=== PATIENT | male | born 1940 | race Caucasian/White ===

== ENCOUNTER 2016-09-01 13:06 | Inpatient (IN) | payer MEDICARE ==
[2016-09-01] VITALS (7 sets, daily range): BP systolic 111–142; BP diastolic 58–84
[~2016-09-01] VITALS: Ht 154.9 cm; Wt 94.0 kg
[~2016-09-01 13:06] MED LIST: ACYCLOVIR800 MG PO; ANUSOL-HC25 MG RC; BACTRIM DS; CIPROFLOXACIN500 MG PO; CLARITIN10 MG PO; DARVOCET N 1001 TAB PO; LEVOFLOXACIN500 MG PO; MEDROL DOSEPAK4 MG PO; PREDNISONE10 MG PO; PYRIDIUM200 MG PO; SEPTRA DS 800 M1 TAB PO; [UNRECOGNIZED DRUG - OTHER] PO
[2016-09-01 13:44] LABS: BASO # 0.1 10*3/uL (0.0-0.1); BASO % 0.5 % (0.0-1.0); EOS # 0.3 10*3/uL (0.0-0.4); EOS % 2.7 % (1.0-4.0); HEMATOCRIT 43.7 % (42.0-52.0); HEMOGLOBIN 14.1 g/dl (14.0-18.0); LYMPH % 21.5 % (27.0-41.0); MEAN CELL VOLUME 87.4 fl (80.0-94.0); MEAN CORPUSCULAR HGB 28.2 pg (27.0-31.0); MEAN CORPUSCULAR HGB CONC 32.3 g/dl (33.0-37.0); MEAN PLATELET VOLUME 9.7 fl (9.6-12.3); MONO # 0.9 10*3/uL (0.1-1.0); MONO % 9.2 % (3.0-9.0); NEUT # 6.2 10*3/uL (2.3-7.9); NEUT % 65.8 % (47.0-73.0); PLATELET COUNT AUTOMATED 208 10*3/uL (130-400); RED CELL DISTRI WIDTH 13.7 % (0-14.5); WHITE BLOOD COUNT 9.5 10*3/uL (4.8-10.8)
[2016-09-01 13:52] LABS: PROTHROMBIN TIME 10.6 SECONDS (9.0-12.4)
[2016-09-01 14:00] LABS: ALBUMIN 3.4 gm/dl (3.1-4.5); ALKALINE PHOSPHATASE 58 U/L (45-117); BILIRUBIN, TOTAL 0.7 mg/dl (0.2-1.0); BUN 12 mg/dl (7-24); CARBON DIOXIDE 30 mmol/L (21-32); CHLORIDE 109 mmol/L (98-107); CPK 56 U/L (39-308); EST GLOM FILT AFRICAN AMERICAN > 60 ml/min; GLUCOSE 110 mg/dL (65-99); MAGNESIUM 2.2 mg/dL (1.5-2.1); POTASSIUM 4.5 mmol/L (3.5-5.1); SGOT/AST 17 IU/L (3-35); SGPT/ALT 23 U/L (12-78); SODIUM 147 mmol/L (136-145); TOTAL PROTEIN 6.7 gm/dL (6.4-8.2)
[2016-09-01 14:01] LABS: C-REACTIVE PROTEIN < 0.29 MG/DL (0-0.3); TROPONIN I < 0.015 ng/ml (<0.045)
[2016-09-01] MEDS ORDERED: AMLODIPINE BESY10 MG PO (14:26)
[2016-09-01] MEDS ORDERED: GAS RELIEF80 MG PO (14:27)
[2016-09-01] MEDS ORDERED: CATAPRES0.3 MG PO (14:27)
[2016-09-01] MEDS ORDERED: FLOMAX0.4 MG PO (14:27)
[2016-09-01] MEDS ORDERED: SUNMARK OMEPRAZ20 M1 PO (14:27)
[2016-09-01] MEDS ORDERED: REFRESH OPTIVE1 EACH OP (14:28)
[2016-09-01] MEDS ORDERED: PREDNISONE50 MG PO (17:13)
[2016-09-01] MEDS ORDERED: ZITHROMAX250 MG PO (17:13)
[2016-09-01] MEDS ORDERED: PREDNISOLONE AC10 M1 OPH (18:00)
[2016-09-01 18:26] LABS: CPK 50 U/L (39-308)
[2016-09-01 18:28] LABS: TROPONIN I < 0.015 ng/ml (<0.045)
[2016-09-02] VITALS: BP 119/74
[2016-09-02 00:52] LABS: CKMB 0.9 ng/ml (0.5-3.6); CPK 61 U/L (39-308)
[2016-09-02 00:55] LABS: TROPONIN I < 0.015 ng/ml (<0.045)
[2016-09-02 03:09] LABS: URINE AMPHETAMINES < 1000 (1000ng/ml); URINE BARBITURATES < 200 (200ng/ml); URINE COCAINE < 300 (300ng/ml)
[2016-09-02 06:10] LABS: BASO % 0.5 % (0.0-1.0); EOS # 0.3 10*3/uL (0.0-0.4); EOS % 3.2 % (1.0-4.0); HEMATOCRIT 42.5 % (42.0-52.0); HEMOGLOBIN 13.5 g/dl (14.0-18.0); LYMPH # 2.1 10*3/uL (1.3-4.4); LYMPH % 24.9 % (27.0-41.0); MEAN CELL VOLUME 87.3 fl (80.0-94.0); MEAN CORPUSCULAR HGB 27.7 pg (27.0-31.0); MEAN CORPUSCULAR HGB CONC 31.8 g/dl (33.0-37.0); MEAN PLATELET VOLUME 10.1 fl (9.6-12.3); MONO # 0.8 10*3/uL (0.1-1.0); MONO % 9.9 % (3.0-9.0); NEUT # 5.2 10*3/uL (2.3-7.9); PLATELET COUNT AUTOMATED 182 10*3/uL (130-400); RED BLOOD COUNT 4.87 10*6/uL (4.50-5.90); RED CELL DISTRI WIDTH 13.5 % (0-14.5); WHITE BLOOD COUNT 8.5 10*3/uL (4.8-10.8)
[2016-09-02 06:23] LABS: CKMB 0.7 ng/ml (0.5-3.6); CPK 62 U/L (39-308)
[2016-09-02 06:24] LABS: TROPONIN I < 0.015 ng/ml (<0.045)
[2016-09-02 06:40] LABS: BUN 10 mg/dl (7-24); CARBON DIOXIDE 30 mmol/L (21-32); CHLORIDE 108 mmol/L (98-107); CHOLESTEROL 131 mg/dL (<200); EST GLOM FILT AFRICAN AMERICAN > 60 ml/min; GLUCOSE 112 mg/dL (65-99); HDL CHOLESTEROL 38 mg/dl (40-60); LDL CHOLESTEROL 64 mg/dL (9-159); PHOSPHOROUS 2.8 mg/dL (2.5-4.9); POTASSIUM 4.5 mmol/L (3.5-5.1); SODIUM 143 mmol/L (136-145); TRIGLYCERIDES 147 mg/dl (<150); VLDL CHOLESTEROL 29 mg/dL (6-40)
[2016-09-02 06:47] LABS: FREE T4 0.85 ng/dl (0.76-1.46)
[2016-09-02 08:00] VITALS: BP 134/90
[2016-09-02 12:00] VITALS: BP 140/70
[2016-09-02] MEDS ORDERED: AMLODIPINE BESYL5 MG PO (16:25)
== END 2016-09-02 15:53 | disposition home or self-care (01) | DRG 314 ==
LOC: ED 13:06 → EDHOLD 14:42 → 5E 14:42
PROVIDERS: Student in an Organized Health Care Education/Training Program
DX: I95.9 Hypotension, unspecified (principal); N17.0 Acute kidney failure with tubular necrosis; E87.0 Hyperosmolality and hypernatremia; E44.1 Mild protein-calorie malnutrition; E87.8 Other disorders of electrolyte and fluid balance, not elsewhere classified; I27.2 Other secondary pulmonary hypertension; E83.41 Hypermagnesemia; I10 Essential (primary) hypertension; I34.0 Nonrheumatic mitral (valve) insufficiency; Z96.1 Presence of intraocular lens; Z85.038 Personal history of other malignant neoplasm of large intestine; Z90.49 Acquired absence of other specified parts of digestive tract; Z98.49 Cataract extraction status, unspecified eye; Z89.029 Acquired absence of unspecified finger(s); Z88.7 Allergy status to serum and vaccine; Z84.1 Family history of disorders of kidney and ureter; Z84.89 Family history of other specified conditions; Z79.2 Long term (current) use of antibiotics; Z79.899 Other long term (current) drug therapy; Z68.39 Body mass index [BMI] 39.0-39.9, adult

== ENCOUNTER 2025-02-11 18:43 | Emergency (ER) | payer OTHER ==
[~2025-02-11] VITALS: Ht 180.3 cm; Wt 54.4 kg
[~2025-02-11 18:43] MED LIST changes: +AMLODIPINE BESY10 MG PO; +AMLODIPINE BESYL5 MG PO; +CATAPRES0.3 MG PO; +FLOMAX0.4 MG PO; +GAS RELIEF80 MG PO; +PREDNISOLONE AC10 M1 OPH; +PREDNISONE50 MG PO; +REFRESH OPTIVE1 EACH OP; +SUNMARK OMEPRAZ20 M1 PO; +ZITHROMAX250 MG PO
== END 2025-02-11 21:17 | disposition short-term general hospital (02) ==
LOC: ED 18:43
DX: K13.79 Other lesions of oral mucosa (principal); I10 Essential (primary) hypertension; Z88.7 Allergy status to serum and vaccine; Z89.029 Acquired absence of unspecified finger(s); Z98.890 Other specified postprocedural states